=== PATIENT | male | born 1935 | race Caucasian/White ===

== ENCOUNTER 2017-09-27 15:38 | Emergency (ER) | payer MEDICARE ==
[~2017-09-27] VITALS: Ht 177.8 cm; Wt 99.8 kg
[2017-09-27] MEDS ORDERED: METOPROLOL SUCC25 MG PO (22:26)
[2017-09-27] MEDS ORDERED: HYDROCHLOROTHIA25 MG PO (22:27)
[2017-09-27] MEDS ORDERED: ONGLYZA5 MG PO (22:27)
[2017-09-27] MEDS ORDERED: ZOCOR40 MG PO (22:28)
[2017-09-27] MEDS ORDERED: ST. JOSEPH ASPI81 MG PO (22:28)
== END 2017-09-28 00:40 | disposition home or self-care (01) ==
LOC: ED 15:38
PROC: 0T9B70Z Drainage of Bladder with Drainage Device, Via Natural or Artificial Opening (ICD-10-PCS; principal; 2017-09-27)
DX: R33.9 Retention of urine, unspecified (principal); R31.9 Hematuria, unspecified; C67.9 Malignant neoplasm of bladder, unspecified
CPT/HCPCS: 36415; 51702; 80053; 81001; 83605; 85025; 96361; 96374; 96375; 96376; 99283; J2405; J3010; J7030